=== PATIENT | male | born 1975 | race African-American/Black ===

== ENCOUNTER 2017-03-06 22:50 | Emergency (ER) | payer MEDICARE, OTHER ==
[~2017-03-06] VITALS: Ht 188 cm; Wt 86.4 kg
[~2017-03-06 22:50] MED LIST: DALF10TA PO; DIME240C2 PO; ERGO500050 PO
[2017-03-06] MEDS ORDERED: AMLO-511 PO (22:55)
[2017-03-06] MEDS ORDERED: DOCU250C91 PO (22:55)
[2017-03-07 00:53] LABS: APPEARANCE,URINE CLEAR (CLEAR); GLUCOSE, URINE (UA) NEGATIVE (NEGATIVE); KETONES,URINE NEGATIVE (NEGATIVE); LEUKOCYTE ESTERASE ,URINE NEGATIVE (NEGATIVE); OCCULT BLOOD,URINE MODERATE (NEGATIVE); PROTEIN,URINE NEGATIVE (NEGATIVE)
[2017-03-07 00:54] LABS: ADD UA MICROSCOPIC YES
[2017-03-07 01:06] LABS: WBC,URINE None Seen /HPF (0-5)
[2017-03-07 01:23] LABS: BASOPHILS # (AUTO) 0.04 K/uL (0.00-0.20); BASOPHILS % (AUTO) 0.4 % (0.0-2.0); EOSINOPHILS # (AUTO) 0.12 K/uL (0.00-0.70); EOSINOPHILS % (AUTO) 1.12 % (1.0-6.0); HEMATOCRIT 47.6 % (41-53); HEMOGLOBIN 15.4 g/dL (13.5-17.5); LYMPHOCYTES # (AUTO) 1.4 K/uL (1.0-4.8); MEAN CORPUSCULAR HGB CONC 32.5 G/dL (31.0-37.0); MEAN CORPUSCULAR VOLUME 89 fL (80-100); MONOCYTES # (AUTO) 0.9 K/uL (0.1-1.0); MONOCYTES % (AUTO) 9.1 % (2.0-9.0); NEUTROPHILS # (AUTO) 7.9 K/uL (1.8-7.7); NEUTROPHILS % (AUTO) 76.4 % (40.0-70.0); PLATELET COUNT (AUTO) 203 K/uL (150-450); RED BLOOD CELL COUNT(AUTO) 5.33 MIL/uL (4.50-5.90); RED CELL DISTRIBUTION WIDTH 14.3 % (11.5-14.5); WHITE BLOOD COUNT (AUTO) 10.3 K/uL (4.5-11.0)
[2017-03-07 01:35] LABS: ANION GAP 8 mmol/L (8-16); CALCIUM, TOTAL 9.6 mg/dL (8.8-10.5); CARBON DIOXIDE 28 mmol/L (22-29); CHLORIDE 104 mmol/L (98-107); CREATININE 0.69 mg/dL (0.60-1.30); GLOMERULAR FILTR. RATE CALC > 60 mL/min (>60); SODIUM SERUM 140 mmol/L (136-145); UREA NITROGEN, BLOOD 12 mg/dL (7-18)
[2017-03-07 01:41] LABS: ALANINE AMINOTRANSFERASE 37 U/L (12-78); ALBUMIN 3.5 g/dL (3.4-5.0); ASPARTATE AMINOTRANSFERASE 19 U/L (15-37); BILIRUBIN,TOTAL 0.4 mg/dL (0.1-1.0)
[2017-03-07 01:47] VITALS: BP 140/89
== END 2017-03-07 03:00 | disposition home or self-care (01) ==
LOC: EMS 22:52
DX: K59.00 Constipation, unspecified (principal); R33.9 Retention of urine, unspecified; I10 Essential (primary) hypertension; F12.90 Cannabis use, unspecified, uncomplicated
CPT/HCPCS: 51702; 74022; 99285

== ENCOUNTER 2019-06-17 17:49 | Inpatient (IN) | payer OTHER ==
[~2019-06-17] VITALS: Ht 188 cm; Wt 79.9 kg
[~2019-06-17 17:49] MED LIST changes: +AMLO5TAB9 PO; -DALF10TA PO; -DIME240C2 PO; +DOCU-342 PO; -ERGO500050 PO
[2019-06-17] MEDS ORDERED: SODIUM CHLORIDE 0.9% 1,000 ML IV ONE ×2 (17:57→19:30)
[2019-06-17] MEDS ORDERED: CHOL125C2 PO (17:57)
[2019-06-17] MEDS ORDERED: CYAN50008 PO (17:57)
[2019-06-17 18:30] LABS: BASOPHILS % (AUTO) 0.1 % (0.0-2.0); EOSINOPHILS % (AUTO) 0.1 % (1.0-6.0); HEMATOCRIT 47.1 % (41-53); HEMOGLOBIN 15.2 g/dL (13.5-17.5); LYMPHOCYTES # (AUTO) 0.9 K/uL (1.0-4.8); LYMPHOCYTES % (AUTO) 5.5 % (22.0-44.0); MEAN CORPUSCULAR HEMOGLOBIN 28.4 pg (26.0-34.0); MEAN CORPUSCULAR HGB CONC 32.3 G/dL (31.0-37.0); MEAN CORPUSCULAR VOLUME 88 fL (80-100); MONOCYTES % (AUTO) 5.5 % (2.0-9.0); NEUTROPHILS # (AUTO) 15.3 K/uL (1.8-7.7); PLATELET COUNT (AUTO) 213 K/uL (150-450); RED BLOOD CELL COUNT(AUTO) 5.34 MIL/uL (4.50-5.90); RED CELL DISTRIBUTION WIDTH 13.6 % (11.5-14.5)
[2019-06-17 18:47] LABS: APPEARANCE,URINE TURBID (CLEAR); GLUCOSE, URINE (UA) NEGATIVE (NEGATIVE); KETONES,URINE 15 mg/dL (NEGATIVE); LEUKOCYTE ESTERASE ,URINE LARGE (NEGATIVE); NITRATE,URINE NEGATIVE (NEGATIVE); OCCULT BLOOD,URINE NEGATIVE (NEGATIVE); PROTEIN,URINE NEGATIVE (NEGATIVE)
[2019-06-17 18:48] LABS: BILIRUBIN,URINE PRELIM. POSITIVE (NEGATIVE)
[2019-06-17 18:48] LABS: NEUTROPHILS % (AUTO) 88.8 % (40.0-70.0)
[2019-06-17 18:57] LABS: ANION GAP 11 mmol/L (8-16); CALCIUM, TOTAL 9.2 mg/dL (8.8-10.5); CARBON DIOXIDE 25 mmol/L (22-29); CHLORIDE 104 mmol/L (98-107); CREATININE 0.58 mg/dL (0.60-1.30); GLOMERULAR FILTR. RATE CALC > 60 mL/min (>60); GLUCOSE,RANDOM 104 mg/dL (70-110); POTASSIUM 3.6 mmol/L (3.5-5.1); SODIUM SERUM 140 mmol/L (136-145); UREA NITROGEN, BLOOD 10 mg/dL (7-18)
[2019-06-17] MEDS ORDERED: CefTRIAXone 1 GM/DEXTROSE 50 ML IV ONE (19:00)
[2019-06-17] MEDS ORDERED: AZITHROMYCIN 500 MG/NS 250 ML IV ONE (19:00)
[2019-06-17 19:01] LABS: ALANINE AMINOTRANSFERASE 30 U/L (12-78); ALBUMIN 3.2 g/dL (3.4-5.0); ALKALINE PHOSPHATASE 73 U/L (46-116); ASPARTATE AMINOTRANSFERASE 13 U/L (15-37); BILIRUBIN,TOTAL 0.5 mg/dL (0.1-1.0); CREATINE KINASE, TOTAL ONLY 59 U/L (39-308); TOTAL PROTEIN, SERUM 6.7 g/dL (6.4-8.2)
[2019-06-17 19:03] LABS: RBC,URINE None Seen /HPF (0-2)
[2019-06-17 19:04] LABS: AMORPHOUS SEDIMENT,UR Moderate /LPF (None Seen); BACTERIA,URINE Moderate /HPF (None Seen); CALCIUM OXALATE CRYSTALS,UR Moderate /LPF (None Seen); SQUAMOUS EPITHELIAL CELL,UR Few /LPF (None Seen)
[2019-06-17 19:07] LABS: INR 1.1 (0.9-1.1); PROTHROMBIN TIME 11.4 SEC (9.4-11.6)
[2019-06-17 19:26] LABS: INFLUENZA TYPE A NEGATIVE FOR TYPE A (NEGATIVE); INFLUENZA TYPE B NEGATIVE FOR TYPE B (NEGATIVE)
[2019-06-17] MEDS ORDERED: ACETAMINOPHEN 325 MG TABLET PO PRN (19:30)
[2019-06-17] MEDS ORDERED: BISACODYL 10 MG RECTAL RECTAL SUPPOSITORY PR PRN (19:30)
[2019-06-17] MEDS: DOCUSATE SODIUM 100 MG CAPSULE PO SCH (20:49)
[2019-06-17 22:19] VITALS: BP 135/84
[2019-06-18 03:25] VITALS: BP 131/89
[2019-06-18 07:34] VITALS: BP 128/77
[2019-06-18] MEDS: DOCUSATE SODIUM 100 MG CAPSULE PO SCH ×2 (10:28→20:28)
[2019-06-18] MEDS: HEPARIN SODIUM,PORCINE 5,000 UNITS/ML VIAL SQ SCH ×4 (10:29→23:39)
[2019-06-18 11:19] VITALS: BP 118/77
[2019-06-18 15:35] VITALS: BP 130/74
[2019-06-18] MEDS: CefTRIAXone 1 GM/DEXTROSE 50 ML IV SCH (19:32)
[2019-06-18 19:57] VITALS: BP 143/83
[2019-06-18] MEDS: AZITHROMYCIN 500 MG/NS 250 ML IV SCH (20:25)
[2019-06-18 23:49] VITALS: BP 137/78
[2019-06-19 00:09] VITALS: BP 129/76
[2019-06-19 04:30] VITALS: BP 147/96
[2019-06-19 07:54] LABS: BASOPHILS % (AUTO) 0.1 % (0.0-2.0); EOSINOPHILS % (AUTO) 2.6 % (1.0-6.0); HEMATOCRIT 40.7 % (41-53); LYMPHOCYTES # (AUTO) 1.3 K/uL (1.0-4.8); LYMPHOCYTES % (AUTO) 10.9 % (22.0-44.0); MEAN CORPUSCULAR HEMOGLOBIN 28.3 pg (26.0-34.0); MEAN CORPUSCULAR VOLUME 88 fL (80-100); MONOCYTES # (AUTO) 0.7 K/uL (0.1-1.0); MONOCYTES % (AUTO) 6.1 % (2.0-9.0); NEUTROPHILS # (AUTO) 9.6 K/uL (1.8-7.7); NEUTROPHILS % (AUTO) 80.3 % (40.0-70.0); PLATELET COUNT (AUTO) 207 K/uL (150-450); RED BLOOD CELL COUNT(AUTO) 4.61 MIL/uL (4.50-5.90); RED CELL DISTRIBUTION WIDTH 13.7 % (11.5-14.5)
[2019-06-19 08:01] LABS: ANION GAP 9 mmol/L (8-16); CALCIUM, TOTAL 8.6 mg/dL (8.8-10.5); CARBON DIOXIDE 27 mmol/L (22-29); CHLORIDE 109 mmol/L (98-107); CREATININE 0.52 mg/dL (0.60-1.30); GLOMERULAR FILTR. RATE CALC > 60 mL/min (>60); GLUCOSE,RANDOM 77 mg/dL (70-110); POTASSIUM 3.8 mmol/L (3.5-5.1); SODIUM SERUM 145 mmol/L (136-145); UREA NITROGEN, BLOOD 9 mg/dL (7-18)
[2019-06-19] MEDS: DOCUSATE SODIUM 100 MG CAPSULE PO SCH ×2 (08:14→20:40)
[2019-06-19] MEDS: HEPARIN SODIUM,PORCINE 5,000 UNITS/ML VIAL SQ SCH ×2 (08:14→15:32)
[2019-06-19 08:45] VITALS: BP 144/95
[2019-06-19 11:32] VITALS: BP 135/81
[2019-06-19 15:39] VITALS: BP 139/94
[2019-06-19] MEDS: CefTRIAXone 1 GM/DEXTROSE 50 ML IV SCH (18:43)
[2019-06-19 20:01] VITALS: BP 144/83
[2019-06-20] VITALS (8 sets, daily range): BP systolic 145–162; BP diastolic 76–98
[2019-06-20] MEDS: AZITHROMYCIN 500 MG/NS 250 ML IV SCH ×2 (00:38→20:17)
[2019-06-20] MEDS: HEPARIN SODIUM,PORCINE 5,000 UNITS/ML VIAL SQ SCH ×3 (00:38→17:32)
[2019-06-20] MEDS: DOCUSATE SODIUM 100 MG CAPSULE PO SCH ×2 (08:43→20:18)
[2019-06-20] MEDS: CefTRIAXone 1 GM/DEXTROSE 50 ML IV SCH (17:31)
[2019-06-21 04:40] VITALS: BP 153/92
[2019-06-21] MEDS: DOCUSATE SODIUM 100 MG CAPSULE PO SCH ×2 (07:58→20:04)
[2019-06-21] MEDS: HEPARIN SODIUM,PORCINE 5,000 UNITS/ML VIAL SQ SCH ×4 (08:00→23:51)
[2019-06-21 08:28] VITALS: BP 157/99
[2019-06-21 08:42] LABS: BASOPHILS % (AUTO) 0.6 % (0.0-2.0); EOSINOPHILS % (AUTO) 5.8 % (1.0-6.0); HEMATOCRIT 39.9 % (41-53); HEMOGLOBIN 13.2 g/dL (13.5-17.5); LYMPHOCYTES # (AUTO) 1.6 K/uL (1.0-4.8); LYMPHOCYTES % (AUTO) 22.9 % (22.0-44.0); MEAN CORPUSCULAR VOLUME 88 fL (80-100); MONOCYTES # (AUTO) 0.5 K/uL (0.1-1.0); NEUTROPHILS # (AUTO) 4.3 K/uL (1.8-7.7); NEUTROPHILS % (AUTO) 62.7 % (40.0-70.0); PLATELET COUNT (AUTO) 220 K/uL (150-450); RED BLOOD CELL COUNT(AUTO) 4.54 MIL/uL (4.50-5.90); RED CELL DISTRIBUTION WIDTH 13.6 % (11.5-14.5)
[2019-06-21 11:05] VITALS: BP 147/97
[2019-06-21 16:10] VITALS: BP 141/93
[2019-06-21] MEDS: CefTRIAXone 1 GM/DEXTROSE 50 ML IV SCH (17:37)
[2019-06-21 19:40] VITALS: BP 153/97
[2019-06-21] MEDS: AZITHROMYCIN 500 MG/NS 250 ML IV SCH (20:04)
[2019-06-22] MEDS: HEPARIN SODIUM,PORCINE 5,000 UNITS/ML VIAL SQ SCH (08:00)
[2019-06-22] MEDS: DOCUSATE SODIUM 100 MG CAPSULE PO SCH (08:10)
[2019-06-22 08:20] VITALS: BP 158/97
[2019-06-22] MEDS ORDERED: LEVO-72 PO (09:46)
[2019-06-22 11:43] VITALS: BP 131/92
[2019-06-22 15:44] VITALS: BP 128/91
== END 2019-06-22 15:50 | disposition home or self-care (01) | DRG 871 ==
LOC: EMS 17:50 → 5N 21:36 → 4E 06-18 23:49
PROVIDERS: ADMIT Internal Medicine; ATTEND Internal Medicine
DX: A41.9 Sepsis, unspecified organism (principal); J69.0 Pneumonitis due to inhalation of food and vomit; N39.0 Urinary tract infection, site not specified; E44.0 Moderate protein-calorie malnutrition; G35 Multiple sclerosis; I10 Essential (primary) hypertension; F12.90 Cannabis use, unspecified, uncomplicated; B96.20 Unspecified Escherichia coli [E. coli] as the cause of diseases classified elsewhere; R62.50 Unspecified lack of expected normal physiological development in childhood; Z68.22 Body mass index [BMI] 22.0-22.9, adult
CPT/HCPCS: 51702; 83605; 87040; 87086; 87205; 87804; 92610; 93005; G0378; J0456; J0696; J1644; J7030

== ENCOUNTER 2021-05-06 20:27 | Inpatient (IN) | payer OTHER ==
[~2021-05-06] VITALS: Ht 172.7 cm; Wt 77.5 kg
[~2021-05-06 20:27] MED LIST changes: +AMLO-257 PO; -AMLO5TAB9 PO; +CHOL500013 PO; +CYAN50009 PO; -DOCU-342 PO; +LEVO-72 PO
[2021-05-06] MEDS ORDERED: SODIUM CHLORIDE 0.9% 1,000 ML IV ONE (23:30)
[2021-05-06] MEDS ORDERED: ACETAMINOPHEN 1000 MG/ISO-OSM 100 ML IV ONE (23:30)
[2021-05-06 23:56] LABS: BASOPHILS % (AUTO) 0.1 % (0.0-2.0); EOSINOPHILS % (AUTO) 0.6 % (1.0-6.0); HEMATOCRIT 49.3 % (41-53); HEMOGLOBIN 16.1 g/dL (13.5-17.5); LYMPHOCYTES % (AUTO) 5.1 % (22.0-44.0); MEAN CORPUSCULAR HEMOGLOBIN 27.9 pg (26.0-34.0); MEAN CORPUSCULAR HGB CONC 32.6 G/dL (31.0-37.0); MEAN CORPUSCULAR VOLUME 86 fL (80-100); MONOCYTES # (AUTO) 0.8 K/uL (0.1-1.0); MONOCYTES % (AUTO) 4.3 % (2.0-9.0); NEUTROPHILS # (AUTO) 17.2 K/uL (1.8-7.7); PLATELET COUNT (AUTO) 236 K/uL (150-450); RED BLOOD CELL COUNT(AUTO) 5.76 MIL/uL (4.50-5.90); RED CELL DISTRIBUTION WIDTH 14.1 % (11.5-14.5)
[2021-05-06 23:59] LABS: NEUTROPHILS % (AUTO) 89.9 % (40.0-70.0)
[2021-05-07] VITALS (7 sets, daily range): BP systolic 148–173; BP diastolic 97–107
[2021-05-07 00:06] LABS: ANION GAP 9 mmol/L (8-16); CALCIUM, TOTAL 9.7 mg/dL (8.8-10.5); CARBON DIOXIDE 27 mmol/L (22-29); CHLORIDE 104 mmol/L (98-107); CREATININE 0.51 mg/dL (0.60-1.30); GLUCOSE,RANDOM 149 mg/dL (70-110); POTASSIUM 3.8 mmol/L (3.5-5.1); SODIUM SERUM 140 mmol/L (136-145); UREA NITROGEN, BLOOD 9 mg/dL (7-18)
[2021-05-07 00:07] LABS: GLOMERULAR FILTR. RATE CALC > 60 mL/min (>60)
[2021-05-07 00:11] LABS: INR 1.3 (0.9-1.1); PROTHROMBIN TIME 13.4 SEC (9.4-11.6)
[2021-05-07 00:13] LABS: ALANINE AMINOTRANSFERASE 25 U/L (12-78); ALBUMIN 3.3 g/dL (3.4-5.0); ALKALINE PHOSPHATASE 68 U/L (46-116); ASPARTATE AMINOTRANSFERASE 9 U/L (15-37); BILIRUBIN,TOTAL 0.8 mg/dL (0.1-1.0); CREATINE KINASE, TOTAL ONLY 32 U/L (39-308)
[2021-05-07 00:15] LABS: LACTIC ACID 0.7 mmol/L (0.4-2.0)
[2021-05-07 00:23] LABS: COVID AG,FIA SOURCE NASAL SWAB
[2021-05-07] MEDS ORDERED: PIPERACILLIN/TAZO 3.375 GM/D5W 50 ML IV ONE (00:45)
[2021-05-07] MEDS ORDERED: LOSA100T58 PO (00:53)
[2021-05-07] MEDS ORDERED: LEVOFLOXACIN 500 MG/D5% WATER 100 ML IV ONE (01:00)
[2021-05-07] MEDS ORDERED: ONDANSETRON HCL 4 MG/2 ML VIAL IVP PRN ×2 (01:15→02:30)
[2021-05-07] MEDS ORDERED: ACETAMINOPHEN 325 MG TABLET PO PRN (01:15)
[2021-05-07 01:47] LABS: APPEARANCE,URINE CLEAR (CLEAR); BILIRUBIN,URINE NEGATIVE (NEGATIVE); GLUCOSE, URINE (UA) NEGATIVE (NEGATIVE); KETONES,URINE >=80 mg/dL (NEGATIVE); LEUKOCYTE ESTERASE ,URINE NEGATIVE (NEGATIVE); NITRATE,URINE NEGATIVE (NEGATIVE); OCCULT BLOOD,URINE SMALL (NEGATIVE); PH,URINE 6.5 (5.0-8.0); PROTEIN,URINE NEGATIVE (NEGATIVE)
[2021-05-07 01:48] LABS: BACTERIA,URINE Rare /HPF (None Seen); WBC,URINE 0-2 /HPF (0-5)
[2021-05-07] MEDS ORDERED: RINGERS LACTATED IV ONE (02:30)
[2021-05-07] MEDS: RINGERS SOLUTION,LACTATED 1,000 ML IV SCH ×2 (03:58→14:41)
[2021-05-07] MEDS ORDERED: SODIUM CHLORIDE 0.9% 100 ML ONE (07:20)
[2021-05-07] MEDS ORDERED: IOHEXOL 350 MG/ML 100 ML VIAL ONE (07:20)
[2021-05-07] MEDS ORDERED: SODIUM CHLORIDE 0.9% 0 ML IV ONE (08:44)
[2021-05-07] MEDS: PIPERACILLIN/TAZO 3.375 GM/D5W 50 ML IV SCH ×3 (08:50→20:15)
[2021-05-07] MEDS: HEPARIN SODIUM,PORCINE 5,000 UNITS/ML VIAL SQ SCH ×2 (08:50→16:52)
[2021-05-07] MEDS ORDERED: LABETALOL HCL 5 MG/ML 20 ML VIAL IVP ONE (09:15)
[2021-05-07 14:35] LABS: BASOPHILS % (AUTO) 0.1 % (0.0-2.0); EOSINOPHILS % (AUTO) 0.2 % (1.0-6.0); HEMATOCRIT 44.2 % (41-53); HEMOGLOBIN 14.8 g/dL (13.5-17.5); LYMPHOCYTES # (AUTO) 1.2 K/uL (1.0-4.8); LYMPHOCYTES % (AUTO) 7.7 % (22.0-44.0); MEAN CORPUSCULAR HEMOGLOBIN 28.4 pg (26.0-34.0); MEAN CORPUSCULAR HGB CONC 33.4 G/dL (31.0-37.0); MEAN CORPUSCULAR VOLUME 85 fL (80-100); MONOCYTES # (AUTO) 0.8 K/uL (0.1-1.0); PLATELET COUNT (AUTO) 212 K/uL (150-450); RED BLOOD CELL COUNT(AUTO) 5.19 MIL/uL (4.50-5.90)
[2021-05-07 14:44] LABS: ANION GAP 7 mmol/L (8-16); CALCIUM, TOTAL 8.9 mg/dL (8.8-10.5); CARBON DIOXIDE 28 mmol/L (22-29); CHLORIDE 105 mmol/L (98-107); CREATININE 0.44 mg/dL (0.60-1.30); GLUCOSE,RANDOM 111 mg/dL (70-110); POTASSIUM 3.6 mmol/L (3.5-5.1); SODIUM SERUM 140 mmol/L (136-145); UREA NITROGEN, BLOOD 9 mg/dL (7-18)
[2021-05-07 14:46] LABS: GLOMERULAR FILTR. RATE CALC > 60 mL/min (>60)
[2021-05-07] MEDS: LABETALOL HCL 5 MG/ML 20 ML VIAL IVP PRN (20:16)
[2021-05-08] MEDS: HEPARIN SODIUM,PORCINE 5,000 UNITS/ML VIAL SQ SCH ×3 (00:23→17:30)
[2021-05-08] MEDS: PIPERACILLIN/TAZO 3.375 GM/D5W 50 ML IV SCH ×4 (02:17→19:56)
[2021-05-08] MEDS: RINGERS SOLUTION,LACTATED 1,000 ML IV SCH ×3 (02:18→23:08)
[2021-05-08 03:38] VITALS: BP 177/101
[2021-05-08 07:33] LABS: BASOPHILS % (AUTO) 0.2 % (0.0-2.0); EOSINOPHILS % (AUTO) 2.3 % (1.0-6.0); HEMATOCRIT 44.2 % (41-53); LYMPHOCYTES # (AUTO) 1.3 K/uL (1.0-4.8); LYMPHOCYTES % (AUTO) 12.2 % (22.0-44.0); MEAN CORPUSCULAR HEMOGLOBIN 29.1 pg (26.0-34.0); MEAN CORPUSCULAR VOLUME 86 fL (80-100); MONOCYTES # (AUTO) 0.8 K/uL (0.1-1.0); MONOCYTES % (AUTO) 7.9 % (2.0-9.0); NEUTROPHILS # (AUTO) 8.2 K/uL (1.8-7.7); NEUTROPHILS % (AUTO) 77.4 % (40.0-70.0); PLATELET COUNT (AUTO) 179 K/uL (150-450); RED BLOOD CELL COUNT(AUTO) 5.16 MIL/uL (4.50-5.90); RED CELL DISTRIBUTION WIDTH 13.5 % (11.5-14.5)
[2021-05-08 07:44] LABS: ANION GAP 7 mmol/L (8-16); CALCIUM, TOTAL 9.2 mg/dL (8.8-10.5); CARBON DIOXIDE 28 mmol/L (22-29); CHLORIDE 104 mmol/L (98-107); CREATININE 0.54 mg/dL (0.60-1.30); GLUCOSE,RANDOM 103 mg/dL (70-110); POTASSIUM 3.6 mmol/L (3.5-5.1); SODIUM SERUM 139 mmol/L (136-145); UREA NITROGEN, BLOOD 7 mg/dL (7-18)
[2021-05-08 07:45] LABS: GLOMERULAR FILTR. RATE CALC > 60 mL/min (>60)
[2021-05-08 07:49] VITALS: BP 182/108
[2021-05-08] MEDS: LOSARTAN POTASSIUM 50 MG TABLET PO SCH (08:17)
[2021-05-08] MEDS: CHOLECALCIFEROL (VIT D3) 5,000 [125 MCG] UNITS CAPSULE PO SCH (08:20)
[2021-05-08] MEDS: LABETALOL HCL 5 MG/ML 20 ML VIAL IVP PRN (08:24)
[2021-05-08] MEDS ORDERED: CYANOCOBALAMIN 500 MCG TABLET PO SCH (09:00)
[2021-05-08 11:00] VITALS: BP 155/92
[2021-05-08 15:23] VITALS: BP 152/88
[2021-05-08 19:47] VITALS: BP 146/90
[2021-05-08 23:42] VITALS: BP 153/96
[2021-05-09] MEDS: HEPARIN SODIUM,PORCINE 5,000 UNITS/ML VIAL SQ SCH ×3 (01:03→16:41)
[2021-05-09] MEDS: PIPERACILLIN/TAZO 3.375 GM/D5W 50 ML IV SCH ×4 (01:04→20:33)
[2021-05-09] MEDS ORDERED: INFLUENZA VIRUS VACCINE QVS 2021-22 (6MO+)/PF 60 MCG/0.5 ML SYRINGE IM. ONE (02:30)
[2021-05-09] MEDS ORDERED: PNEUMOCOCCAL VACCINE POLYVALENT 0.5 ML VIAL [PPSV23] IM. ONE (02:30)
[2021-05-09 04:13] VITALS: BP 158/98
[2021-05-09 07:27] VITALS: BP 170/102
[2021-05-09] MEDS: LOSARTAN POTASSIUM 50 MG TABLET PO SCH (08:20)
[2021-05-09] MEDS ORDERED: LABETALOL HCL 5 MG/ML IV PRN (08:22)
[2021-05-09] MEDS ORDERED: CYANOCOBALAMIN 500 MCG TABLET PO SCH (09:00)
[2021-05-09] MEDS: RINGERS SOLUTION,LACTATED 1,000 ML IV SCH ×2 (09:34→22:35)
[2021-05-09] MEDS: CHOLECALCIFEROL (VIT D3) 5,000 [125 MCG] UNITS CAPSULE PO SCH (09:35)
[2021-05-09] MEDS: LABETALOL HCL 5 MG/ML 20 ML VIAL IVP PRN (09:49)
[2021-05-09 10:39] VITALS: BP 164/97
[2021-05-09] MEDS: NIFEdipine 30 MG ER TABLET PO SCH ×2 (14:04→20:34)
[2021-05-09 14:53] VITALS: BP 155/102
[2021-05-09 19:42] VITALS: BP 153/95
[2021-05-09 23:44] VITALS: BP 179/84
[2021-05-10] VITALS (7 sets, daily range): BP systolic 136–168; BP diastolic 74–105
[2021-05-10] MEDS: HEPARIN SODIUM,PORCINE 5,000 UNITS/ML VIAL SQ SCH ×4 (00:11→16:00)
[2021-05-10] MEDS: PIPERACILLIN/TAZO 3.375 GM/D5W 50 ML IV SCH ×4 (01:16→22:30)
[2021-05-10] MEDS: LABETALOL HCL 5 MG/ML 20 ML VIAL IVP PRN (03:12)
[2021-05-10] MEDS: RINGERS SOLUTION,LACTATED 1,000 ML IV SCH ×2 (09:08→22:31)
[2021-05-10] MEDS: CHOLECALCIFEROL (VIT D3) 5,000 [125 MCG] UNITS CAPSULE PO SCH (09:09)
[2021-05-10] MEDS: LOSARTAN POTASSIUM 50 MG TABLET PO SCH (09:09)
[2021-05-10] MEDS: NIFEdipine 30 MG ER TABLET PO SCH ×2 (09:10→22:30)
[2021-05-10 13:44] LABS: BASOPHILS % (AUTO) 0.6 % (0.0-2.0); EOSINOPHILS % (AUTO) 8.6 % (1.0-6.0); HEMATOCRIT 42.6 % (41-53); HEMOGLOBIN 14.2 g/dL (13.5-17.5); LYMPHOCYTES # (AUTO) 1.6 K/uL (1.0-4.8); LYMPHOCYTES % (AUTO) 19.6 % (22.0-44.0); MEAN CORPUSCULAR HEMOGLOBIN 28.6 pg (26.0-34.0); MEAN CORPUSCULAR HGB CONC 33.4 G/dL (31.0-37.0); MEAN CORPUSCULAR VOLUME 86 fL (80-100); MONOCYTES # (AUTO) 0.6 K/uL (0.1-1.0); MONOCYTES % (AUTO) 6.9 % (2.0-9.0); NEUTROPHILS # (AUTO) 5.1 K/uL (1.8-7.7); NEUTROPHILS % (AUTO) 64.3 % (40.0-70.0); PLATELET COUNT (AUTO) 269 K/uL (150-450); RED BLOOD CELL COUNT(AUTO) 4.97 MIL/uL (4.50-5.90); RED CELL DISTRIBUTION WIDTH 13.8 % (11.5-14.5)
[2021-05-10 14:22] LABS: ANION GAP 6 mmol/L (8-16); CALCIUM, TOTAL 9.4 mg/dL (8.8-10.5); CARBON DIOXIDE 31 mmol/L (22-29); CHLORIDE 104 mmol/L (98-107); CREATININE 0.41 mg/dL (0.60-1.30); GLOMERULAR FILTR. RATE CALC > 60 mL/min (>60); GLUCOSE,RANDOM 142 mg/dL (70-110); POTASSIUM 3.3 mmol/L (3.5-5.1); SODIUM SERUM 141 mmol/L (136-145); UREA NITROGEN, BLOOD 2 mg/dL (7-18)
[2021-05-10 14:27] LABS: ALANINE AMINOTRANSFERASE 18 U/L (12-78); ALBUMIN 2.6 g/dL (3.4-5.0); ALKALINE PHOSPHATASE 55 U/L (46-116); ASPARTATE AMINOTRANSFERASE 15 U/L (15-37); BILIRUBIN,TOTAL 0.3 mg/dL (0.1-1.0); TOTAL PROTEIN, SERUM 6.7 g/dL (6.4-8.2)
[2021-05-11] VITALS (9 sets, daily range): BP systolic 137–165; BP diastolic 79–116
[2021-05-11] MEDS: RINGERS SOLUTION,LACTATED 1,000 ML IV SCH ×3 (00:30→21:01)
[2021-05-11] MEDS: PIPERACILLIN/TAZO 3.375 GM/D5W 50 ML IV SCH ×4 (02:00→21:00)
[2021-05-11] MEDS: HEPARIN SODIUM,PORCINE 5,000 UNITS/ML VIAL SQ SCH ×3 (08:00→16:33)
[2021-05-11] MEDS: LOSARTAN POTASSIUM 50 MG TABLET PO SCH (08:19)
[2021-05-11] MEDS: NIFEdipine 30 MG ER TABLET PO SCH ×2 (08:19→21:16)
[2021-05-11] MEDS: LABETALOL HCL 5 MG/ML 20 ML VIAL IVP PRN ×2 (08:45→16:42)
[2021-05-11] MEDS: CHOLECALCIFEROL (VIT D3) 5,000 [125 MCG] UNITS CAPSULE PO SCH (09:00)
[2021-05-11 12:18] LABS: ABG METHEMOGLOBIN 0.3 % (0.0-1.5); SOURCE, BLOOD GAS ARTERIAL; TEMPERATURE, FAHRENHEIT, BG 97.6 FAHREN (96.0-98.6)
[2021-05-11 12:23] LABS: ABG BASE EXCESS 0.8 mmol/L (-2.0-3.0); ABG CARBOXYHEMOGLOBIN 0.5 % (0.0-1.5); ABG HCO3 24.6 mmol/L (22.0-26.0); ABG OXYHEMOGLOBIN 78.4 % (94.0-100.0); ABG PCO2 40 mmHg (35-45); ABG PH 7.419 (7.35-7.450); ABG TOTAL HEMOGLOBIN 16.4 G/dL (12.0-18.0)
[2021-05-11 12:26] LABS: PO2, ARTERIAL BG 35.4 mmHg (88.0-96.0)
[2021-05-11 12:27] LABS: INSPIRATORY TIME, BG 0.8 SEC; O2 DEVICE,BLOOD GAS BIPAP (ROOM AIR); SITE, BLOOD GAS RT RADIAL; SPONTANEOUS VT, BG 568 ml
[2021-05-11 16:47] LABS: GLUCOMETER DEV NAME(LOC) 5N.1C; GLUCOSE,POINT OF CARE 124 MG/DL (70-110)
[2021-05-11] MEDS: ACETYLCYSTEINE 10% 100 MG/ML 4 ML NEB SOLUTION NEB SCH ×4 (17:11→23:05)
[2021-05-11] MEDS: IPRATROPIUM BROMIDE 0.5 MG/2.5 ML NEB SOLUTION NEB SCH ×4 (17:11→23:04)
[2021-05-11] MEDS: ALBUTEROL SULFATE 2.5 MG/0.5 ML NEB SOLUTION NEB SCH ×4 (17:11→23:04)
[2021-05-12] VITALS (17 sets, daily range): BP systolic 125–168; BP diastolic 79–106
[2021-05-12] MEDS: HEPARIN SODIUM,PORCINE 5,000 UNITS/ML VIAL SQ SCH ×3 (01:00→15:55)
[2021-05-12] MEDS: PIPERACILLIN/TAZO 3.375 GM/D5W 50 ML IV SCH ×4 (02:08→20:21)
[2021-05-12] MEDS: ACETYLCYSTEINE 10% 100 MG/ML 4 ML NEB SOLUTION NEB SCH ×6 (03:37→23:55)
[2021-05-12] MEDS: IPRATROPIUM BROMIDE 0.5 MG/2.5 ML NEB SOLUTION NEB SCH ×6 (03:37→23:55)
[2021-05-12] MEDS: ALBUTEROL SULFATE 2.5 MG/0.5 ML NEB SOLUTION NEB SCH ×6 (03:37→23:55)
[2021-05-12] MEDS: LABETALOL HCL 5 MG/ML 20 ML VIAL IVP PRN (04:02)
[2021-05-12] MEDS: RINGERS SOLUTION,LACTATED 1,000 ML IV SCH ×2 (06:40→18:05)
[2021-05-12 08:32] LABS: BASOPHILS % (AUTO) 0.2 % (0.0-2.0); EOSINOPHILS % (AUTO) 0.4 % (1.0-6.0); HEMATOCRIT 41.8 % (41-53); HEMOGLOBIN 14.1 g/dL (13.5-17.5); LYMPHOCYTES # (AUTO) 1.2 K/uL (1.0-4.8); LYMPHOCYTES % (AUTO) 6.4 % (22.0-44.0); MEAN CORPUSCULAR HGB CONC 33.7 G/dL (31.0-37.0); MEAN CORPUSCULAR VOLUME 86 fL (80-100); MONOCYTES # (AUTO) 1.3 K/uL (0.1-1.0); MONOCYTES % (AUTO) 7.1 % (2.0-9.0); NEUTROPHILS # (AUTO) 15.5 K/uL (1.8-7.7); PLATELET COUNT (AUTO) 258 K/uL (150-450); RED BLOOD CELL COUNT(AUTO) 4.86 MIL/uL (4.50-5.90); RED CELL DISTRIBUTION WIDTH 13.8 % (11.5-14.5)
[2021-05-12 08:39] LABS: NEUTROPHILS % (AUTO) 85.9 % (40.0-70.0)
[2021-05-12 10:01] LABS: ANION GAP 8 mmol/L (8-16); CALCIUM, TOTAL 8.9 mg/dL (8.8-10.5); CARBON DIOXIDE 29 mmol/L (22-29); CHLORIDE 103 mmol/L (98-107); CREATININE 0.53 mg/dL (0.60-1.30); GLUCOSE,RANDOM 116 mg/dL (70-110); SODIUM SERUM 140 mmol/L (136-145); UREA NITROGEN, BLOOD 6 mg/dL (7-18)
[2021-05-12 10:02] LABS: GLOMERULAR FILTR. RATE CALC > 60 mL/min (>60)
[2021-05-12] MEDS: POTASSIUM CHL 10 MEQ/WATER 50 ML IV SCH ×4 (10:49→14:22)
[2021-05-12] MEDS: LOSARTAN POTASSIUM 50 MG TABLET PO SCH (11:22)
[2021-05-12] MEDS: NIFEdipine 30 MG ER TABLET PO SCH ×2 (11:22→20:20)
[2021-05-12] MEDS: CHOLECALCIFEROL (VIT D3) 5,000 [125 MCG] UNITS CAPSULE PO SCH (11:23)
[2021-05-12] MEDS ORDERED: 0.9% SODIUM CHLORIDE 5 ML NEB SOLUTION NEB ONE (19:57)
[2021-05-12 21:27] LABS: C-REACTIVE PROTEIN QUANT 16.85 mg/dL (0.00-0.30)
[2021-05-12 21:34] LABS: LACTIC ACID 1.2 mmol/L (0.4-2.0)
[2021-05-13] VITALS (14 sets, daily range): BP systolic 121–158; BP diastolic 72–99
[2021-05-13] MEDS: HEPARIN SODIUM,PORCINE 5,000 UNITS/ML VIAL SQ SCH ×3 (00:58→16:14)
[2021-05-13] MEDS: PIPERACILLIN/TAZO 3.375 GM/D5W 50 ML IV SCH ×4 (03:03→19:46)
[2021-05-13] MEDS: LABETALOL HCL 5 MG/ML 20 ML VIAL IVP PRN (03:03)
[2021-05-13] MEDS: RINGERS SOLUTION,LACTATED 1,000 ML IV SCH ×3 (03:04→23:50)
[2021-05-13] MEDS: ALBUTEROL SULFATE 2.5 MG/0.5 ML NEB SOLUTION NEB SCH ×6 (03:58→23:55)
[2021-05-13] MEDS: IPRATROPIUM BROMIDE 0.5 MG/2.5 ML NEB SOLUTION NEB SCH ×6 (03:58→23:55)
[2021-05-13] MEDS: ACETYLCYSTEINE 10% 100 MG/ML 4 ML NEB SOLUTION NEB SCH ×6 (03:59→23:55)
[2021-05-13] MEDS: LOSARTAN POTASSIUM 50 MG TABLET PO SCH (08:21)
[2021-05-13] MEDS: CHOLECALCIFEROL (VIT D3) 5,000 [125 MCG] UNITS CAPSULE PO SCH (08:22)
[2021-05-13] MEDS: NIFEdipine 30 MG ER TABLET PO SCH ×2 (08:22→21:32)
[2021-05-13 08:54] LABS: BASOPHILS % (AUTO) 0.3 % (0.0-2.0); EOSINOPHILS % (AUTO) 3.5 % (1.0-6.0); HEMATOCRIT 42.8 % (41-53); HEMOGLOBIN 14.5 g/dL (13.5-17.5); LYMPHOCYTES # (AUTO) 1.8 K/uL (1.0-4.8); LYMPHOCYTES % (AUTO) 12.2 % (22.0-44.0); MEAN CORPUSCULAR HEMOGLOBIN 28.7 pg (26.0-34.0); MEAN CORPUSCULAR HGB CONC 33.7 G/dL (31.0-37.0); MEAN CORPUSCULAR VOLUME 85 fL (80-100); MONOCYTES # (AUTO) 1.5 K/uL (0.1-1.0); MONOCYTES % (AUTO) 10.6 % (2.0-9.0); NEUTROPHILS # (AUTO) 10.6 K/uL (1.8-7.7); NEUTROPHILS % (AUTO) 73.4 % (40.0-70.0); PLATELET COUNT (AUTO) 278 K/uL (150-450); RED BLOOD CELL COUNT(AUTO) 5.03 MIL/uL (4.50-5.90)
[2021-05-13 09:02] LABS: ANION GAP 9 mmol/L (8-16); CALCIUM, TOTAL 9.4 mg/dL (8.8-10.5); CARBON DIOXIDE 29 mmol/L (22-29); CHLORIDE 103 mmol/L (98-107); CREATININE 0.51 mg/dL (0.60-1.30); GLOMERULAR FILTR. RATE CALC > 60 mL/min (>60); GLUCOSE,RANDOM 99 mg/dL (70-110); POTASSIUM 3.6 mmol/L (3.5-5.1); SODIUM SERUM 141 mmol/L (136-145); UREA NITROGEN, BLOOD 6 mg/dL (7-18)
[2021-05-14] VITALS: BP 145/96
[2021-05-14] MEDS: PIPERACILLIN/TAZO 3.375 GM/D5W 50 ML IV SCH ×4 (03:09→20:38)
[2021-05-14] MEDS: IPRATROPIUM BROMIDE 0.5 MG/2.5 ML NEB SOLUTION NEB SCH ×7 (03:47→23:10)
[2021-05-14] MEDS: ACETYLCYSTEINE 10% 100 MG/ML 4 ML NEB SOLUTION NEB SCH ×6 (03:47→23:10)
[2021-05-14] MEDS: ALBUTEROL SULFATE 2.5 MG/0.5 ML NEB SOLUTION NEB SCH ×7 (03:47→23:10)
[2021-05-14 04:00] VITALS: BP 147/98
[2021-05-14 08:00] VITALS: BP 146/92
[2021-05-14 08:03] LABS: BASOPHILS % (AUTO) 0.4 % (0.0-2.0); EOSINOPHILS % (AUTO) 8.3 % (1.0-6.0); HEMATOCRIT 39.8 % (41-53); HEMOGLOBIN 13.4 g/dL (13.5-17.5); LYMPHOCYTES # (AUTO) 1.4 K/uL (1.0-4.8); LYMPHOCYTES % (AUTO) 12.7 % (22.0-44.0); MEAN CORPUSCULAR HEMOGLOBIN 28.7 pg (26.0-34.0); MEAN CORPUSCULAR HGB CONC 33.7 G/dL (31.0-37.0); MEAN CORPUSCULAR VOLUME 85 fL (80-100); MONOCYTES # (AUTO) 1.3 K/uL (0.1-1.0); MONOCYTES % (AUTO) 11.4 % (2.0-9.0); NEUTROPHILS # (AUTO) 7.4 K/uL (1.8-7.7); NEUTROPHILS % (AUTO) 67.2 % (40.0-70.0); PLATELET COUNT (AUTO) 299 K/uL (150-450); RED BLOOD CELL COUNT(AUTO) 4.68 MIL/uL (4.50-5.90)
[2021-05-14 08:12] LABS: ANION GAP 9 mmol/L (8-16); CARBON DIOXIDE 32 mmol/L (22-29); CHLORIDE 103 mmol/L (98-107); GLUCOSE,RANDOM 102 mg/dL (70-110); POTASSIUM 3.1 mmol/L (3.5-5.1); SODIUM SERUM 144 mmol/L (136-145); UREA NITROGEN, BLOOD 4 mg/dL (7-18)
[2021-05-14 08:15] LABS: GLOMERULAR FILTR. RATE CALC > 60 mL/min (>60)
[2021-05-14] MEDS: CHOLECALCIFEROL (VIT D3) 5,000 [125 MCG] UNITS CAPSULE PO SCH (08:19)
[2021-05-14] MEDS: ETHYL ALCOHOL 62% ANTISEPTIC NASAL INHALANT 0.6 ML AMPUL NASAL SCH ×2 (08:19→20:38)
[2021-05-14] MEDS: NIFEdipine 30 MG ER TABLET PO SCH ×2 (08:19→20:37)
[2021-05-14] MEDS: HEPARIN SODIUM,PORCINE 5,000 UNITS/ML VIAL SQ SCH ×3 (08:20→15:19)
[2021-05-14] MEDS: LOSARTAN POTASSIUM 50 MG TABLET PO SCH (08:20)
[2021-05-14] MEDS: RINGERS SOLUTION,LACTATED 1,000 ML IV SCH ×2 (08:21→18:05)
[2021-05-14 13:04] VITALS: BP 137/88
[2021-05-14 15:26] VITALS: BP 143/98
[2021-05-14] MEDS ORDERED: MAGNESIUM SULFATE 4 GM/WATER 100 ML IV PRN (21:00)
[2021-05-14] MEDS ORDERED: MAGNESIUM SULFATE 2 GM/WATER 50 ML IV PRN (21:00)
[2021-05-14] MEDS ORDERED: MAGNESIUM OXIDE 400 MG TABLET PO PRN (21:00)
[2021-05-14] MEDS ORDERED: POTASSIUM CHLORIDE 20 MEQ ER TABLET PO PRN (21:00)
[2021-05-14 21:30] VITALS: BP 142/89
[2021-05-15] MEDS: HEPARIN SODIUM,PORCINE 5,000 UNITS/ML VIAL SQ SCH ×3 (00:11→16:23)
[2021-05-15 01:56] VITALS: BP 141/88
[2021-05-15] MEDS: PIPERACILLIN/TAZO 3.375 GM/D5W 50 ML IV SCH ×4 (02:33→20:21)
[2021-05-15] MEDS: ACETYLCYSTEINE 10% 100 MG/ML 4 ML NEB SOLUTION NEB SCH ×6 (02:49→23:13)
[2021-05-15] MEDS: IPRATROPIUM BROMIDE 0.5 MG/2.5 ML NEB SOLUTION NEB SCH ×6 (02:49→23:13)
[2021-05-15] MEDS: ALBUTEROL SULFATE 2.5 MG/0.5 ML NEB SOLUTION NEB SCH ×6 (02:49→23:13)
[2021-05-15] MEDS: RINGERS SOLUTION,LACTATED 1,000 ML IV SCH ×2 (05:08→14:30)
[2021-05-15 05:34] VITALS: BP 156/96
[2021-05-15] MEDS: ETHYL ALCOHOL 62% ANTISEPTIC NASAL INHALANT 0.6 ML AMPUL NASAL SCH ×2 (09:16→20:21)
[2021-05-15] MEDS: CHOLECALCIFEROL (VIT D3) 5,000 [125 MCG] UNITS CAPSULE PO SCH (09:16)
[2021-05-15] MEDS: NIFEdipine 30 MG ER TABLET PO SCH ×2 (09:16→20:21)
[2021-05-15] MEDS: LOSARTAN POTASSIUM 50 MG TABLET PO SCH (09:16)
[2021-05-15 10:12] VITALS: BP 142/103
[2021-05-15 14:46] VITALS: BP 142/85
[2021-05-15 17:27] VITALS: BP 121/81
[2021-05-15] MEDS ORDERED: SODIUM CHLORIDE 0.9% 250 ML IV ONE (20:18)
[2021-05-15 21:47] VITALS: BP 144/99
[2021-05-16] MEDS: HEPARIN SODIUM,PORCINE 5,000 UNITS/ML VIAL SQ SCH ×4 (00:47→23:46)
[2021-05-16] MEDS: LABETALOL HCL 5 MG/ML 20 ML VIAL IVP PRN (01:27)
[2021-05-16 01:28] VITALS: BP 161/105
[2021-05-16] MEDS: PIPERACILLIN/TAZO 3.375 GM/D5W 50 ML IV SCH ×4 (01:33→21:10)
[2021-05-16] MEDS: ACETYLCYSTEINE 10% 100 MG/ML 4 ML NEB SOLUTION NEB SCH ×6 (02:54→23:46)
[2021-05-16] MEDS: ALBUTEROL SULFATE 2.5 MG/0.5 ML NEB SOLUTION NEB SCH ×6 (02:54→23:44)
[2021-05-16] MEDS: IPRATROPIUM BROMIDE 0.5 MG/2.5 ML NEB SOLUTION NEB SCH ×6 (02:54→23:44)
[2021-05-16 06:43] VITALS: BP 139/94
[2021-05-16 07:15] LABS: ANION GAP 3 mmol/L (8-16); CALCIUM, TOTAL 9.3 mg/dL (8.8-10.5); CARBON DIOXIDE 33 mmol/L (22-29); CHLORIDE 106 mmol/L (98-107); CREATININE 0.53 mg/dL (0.60-1.30); GLUCOSE,RANDOM 97 mg/dL (70-110); POTASSIUM 3.2 mmol/L (3.5-5.1); SODIUM SERUM 142 mmol/L (136-145); UREA NITROGEN, BLOOD 6 mg/dL (7-18)
[2021-05-16 07:18] LABS: GLOMERULAR FILTR. RATE CALC > 60 mL/min (>60)
[2021-05-16] MEDS: ETHYL ALCOHOL 62% ANTISEPTIC NASAL INHALANT 0.6 ML AMPUL NASAL SCH ×2 (08:15→21:10)
[2021-05-16] MEDS: NIFEdipine 30 MG ER TABLET PO SCH ×2 (08:15→21:10)
[2021-05-16] MEDS: LOSARTAN POTASSIUM 50 MG TABLET PO SCH (08:17)
[2021-05-16 08:18] VITALS: BP 151/93
[2021-05-16] MEDS: CHOLECALCIFEROL (VIT D3) 5,000 [125 MCG] UNITS CAPSULE PO SCH (08:26)
[2021-05-16 11:16] VITALS: BP 151/99
[2021-05-16] MEDS: POTASSIUM CHL 10 MEQ/WATER 50 ML IV PRN ×3 (14:44→17:40)
[2021-05-16 16:06] VITALS: BP 146/97
[2021-05-16 19:10] VITALS: BP 150/99
[2021-05-16] MEDS: ACETAMINOPHEN 325 MG TABLET PO PRN (23:47)
[2021-05-17 00:20] VITALS: BP 151/95
[2021-05-17] MEDS: ALBUTEROL SULFATE 2.5 MG/0.5 ML NEB SOLUTION NEB SCH ×6 (02:17→23:52)
[2021-05-17] MEDS: IPRATROPIUM BROMIDE 0.5 MG/2.5 ML NEB SOLUTION NEB SCH ×6 (02:17→23:52)
[2021-05-17] MEDS: ACETYLCYSTEINE 10% 100 MG/ML 4 ML NEB SOLUTION NEB SCH ×6 (02:17→23:52)
[2021-05-17 04:15] VITALS: BP 152/89
[2021-05-17] MEDS: PIPERACILLIN/TAZO 3.375 GM/D5W 50 ML IV SCH ×4 (04:31→21:05)
[2021-05-17 07:30] VITALS: BP 135/93
[2021-05-17 07:44] LABS: POTASSIUM 3.9 mmol/L (3.5-5.1)
[2021-05-17] MEDS: CHOLECALCIFEROL (VIT D3) 5,000 [125 MCG] UNITS CAPSULE PO SCH (08:50)
[2021-05-17] MEDS: HEPARIN SODIUM,PORCINE 5,000 UNITS/ML VIAL SQ SCH ×2 (08:50→15:00)
[2021-05-17] MEDS: LOSARTAN POTASSIUM 50 MG TABLET PO SCH (08:51)
[2021-05-17] MEDS: NIFEdipine 30 MG ER TABLET PO SCH ×2 (08:51→21:05)
[2021-05-17] MEDS: ETHYL ALCOHOL 62% ANTISEPTIC NASAL INHALANT 0.6 ML AMPUL NASAL SCH ×2 (08:51→21:05)
[2021-05-17 11:41] VITALS: BP 138/89
[2021-05-17 15:20] VITALS: BP 154/98
[2021-05-17 19:51] VITALS: BP 145/102
[2021-05-18 00:10] VITALS: BP 146/97
[2021-05-18] MEDS: HydrALAZINE HCL 20 MG/ML VIAL IVP PRN (00:27)
[2021-05-18] MEDS: HEPARIN SODIUM,PORCINE 5,000 UNITS/ML VIAL SQ SCH ×4 (00:27→23:50)
[2021-05-18] MEDS: ACETAMINOPHEN 325 MG TABLET PO PRN (00:50)
[2021-05-18] MEDS ORDERED: DIGOXIN 250 MCG/ML 2 ML AMP IVP ONE (01:30)
[2021-05-18] MEDS ORDERED: SODIUM CHLORIDE 0.9% 250 ML IV ONE (03:33)
[2021-05-18] MEDS: PIPERACILLIN/TAZO 3.375 GM/D5W 50 ML IV SCH ×4 (03:41→20:05)
[2021-05-18 04:12] VITALS: BP 134/81
[2021-05-18] MEDS: IPRATROPIUM BROMIDE 0.5 MG/2.5 ML NEB SOLUTION NEB SCH ×6 (04:18→23:55)
[2021-05-18] MEDS: ACETYLCYSTEINE 10% 100 MG/ML 4 ML NEB SOLUTION NEB SCH ×6 (04:18→23:55)
[2021-05-18] MEDS: ALBUTEROL SULFATE 2.5 MG/0.5 ML NEB SOLUTION NEB SCH ×6 (04:18→23:55)
[2021-05-18 07:40] VITALS: BP 144/95
[2021-05-18] MEDS: NIFEdipine 30 MG ER TABLET PO SCH ×2 (09:00→20:05)
[2021-05-18] MEDS: ETHYL ALCOHOL 62% ANTISEPTIC NASAL INHALANT 0.6 ML AMPUL NASAL SCH ×2 (09:10→20:05)
[2021-05-18] MEDS: CHOLECALCIFEROL (VIT D3) 5,000 [125 MCG] UNITS CAPSULE PO SCH (09:11)
[2021-05-18] MEDS: LOSARTAN POTASSIUM 50 MG TABLET PO SCH (09:11)
[2021-05-18 12:30] VITALS: BP 137/91
[2021-05-18 16:20] VITALS: BP 135/82
[2021-05-18 19:45] VITALS: BP 140/93
[2021-05-19 00:18] VITALS: BP 129/75
[2021-05-19] MEDS: PIPERACILLIN/TAZO 3.375 GM/D5W 50 ML IV SCH ×4 (01:44→20:07)
[2021-05-19] MEDS: ACETYLCYSTEINE 10% 100 MG/ML 4 ML NEB SOLUTION NEB SCH ×6 (03:44→23:28)
[2021-05-19] MEDS: IPRATROPIUM BROMIDE 0.5 MG/2.5 ML NEB SOLUTION NEB SCH ×6 (03:44→23:30)
[2021-05-19] MEDS: ALBUTEROL SULFATE 2.5 MG/0.5 ML NEB SOLUTION NEB SCH ×6 (03:44→23:27)
[2021-05-19 05:12] VITALS: BP 141/94
[2021-05-19 07:34] VITALS: BP 136/88
[2021-05-19 08:15] LABS: THYROID STIMULATING HORMONE 0.49 uIU/mL (0.36-3.74)
[2021-05-19] MEDS: LOSARTAN POTASSIUM 50 MG TABLET PO SCH (09:05)
[2021-05-19] MEDS: ETHYL ALCOHOL 62% ANTISEPTIC NASAL INHALANT 0.6 ML AMPUL NASAL SCH ×2 (09:05→20:07)
[2021-05-19] MEDS: HEPARIN SODIUM,PORCINE 5,000 UNITS/ML VIAL SQ SCH ×3 (09:05→23:26)
[2021-05-19] MEDS: NIFEdipine 30 MG ER TABLET PO SCH ×2 (09:06→20:07)
[2021-05-19] MEDS: CHOLECALCIFEROL (VIT D3) 5,000 [125 MCG] UNITS CAPSULE PO SCH (09:07)
[2021-05-19 11:34] VITALS: BP 128/93
[2021-05-19 12:42] LABS: BASOPHILS % (AUTO) 0.5 % (0.0-2.0); EOSINOPHILS % (AUTO) 5.7 % (1.0-6.0); HEMATOCRIT 38.9 % (41-53); HEMOGLOBIN 12.7 g/dL (13.5-17.5); LYMPHOCYTES # (AUTO) 1.6 K/uL (1.0-4.8); LYMPHOCYTES % (AUTO) 13.9 % (22.0-44.0); MEAN CORPUSCULAR HEMOGLOBIN 28.3 pg (26.0-34.0); MEAN CORPUSCULAR HGB CONC 32.7 G/dL (31.0-37.0); MEAN CORPUSCULAR VOLUME 87 fL (80-100); MONOCYTES # (AUTO) 1.1 K/uL (0.1-1.0); MONOCYTES % (AUTO) 9.8 % (2.0-9.0); NEUTROPHILS % (AUTO) 70.1 % (40.0-70.0); PLATELET COUNT (AUTO) 348 K/uL (150-450); RED BLOOD CELL COUNT(AUTO) 4.49 MIL/uL (4.50-5.90); RED CELL DISTRIBUTION WIDTH 14.6 % (11.5-14.5)
[2021-05-19 12:52] LABS: ALANINE AMINOTRANSFERASE 75 U/L (12-78); ALBUMIN 2.3 g/dL (3.4-5.0); ALKALINE PHOSPHATASE 41 U/L (46-116); ANION GAP 15 mmol/L (8-16); ASPARTATE AMINOTRANSFERASE 42 U/L (15-37); BILIRUBIN,TOTAL 0.2 mg/dL (0.1-1.0); CALCIUM, TOTAL 9.5 mg/dL (8.8-10.5); CARBON DIOXIDE 25 mmol/L (22-29); CHLORIDE 106 mmol/L (98-107); CREATININE 0.57 mg/dL (0.60-1.30); GLUCOSE,RANDOM 106 mg/dL (70-110); POTASSIUM 3.6 mmol/L (3.5-5.1); SODIUM SERUM 146 mmol/L (136-145); TOTAL PROTEIN, SERUM 6.9 g/dL (6.4-8.2); UREA NITROGEN, BLOOD 13 mg/dL (7-18)
[2021-05-19 12:53] LABS: GLOMERULAR FILTR. RATE CALC > 60 mL/min (>60)
[2021-05-19 15:48] VITALS: BP 139/93
[2021-05-19 20:01] VITALS: BP 136/93
[2021-05-20 00:31] VITALS: BP 127/80
[2021-05-20] MEDS: PIPERACILLIN/TAZO 3.375 GM/D5W 50 ML IV SCH ×4 (01:33→21:35)
[2021-05-20] MEDS: ALBUTEROL SULFATE 2.5 MG/0.5 ML NEB SOLUTION NEB SCH ×6 (03:21→23:04)
[2021-05-20] MEDS: ACETYLCYSTEINE 10% 100 MG/ML 4 ML NEB SOLUTION NEB SCH ×6 (03:21→23:04)
[2021-05-20] MEDS: IPRATROPIUM BROMIDE 0.5 MG/2.5 ML NEB SOLUTION NEB SCH ×6 (03:21→23:04)
[2021-05-20 04:29] VITALS: BP 131/90
[2021-05-20 08:05] VITALS: BP 133/90
[2021-05-20] MEDS: NIFEdipine 30 MG ER TABLET PO SCH ×2 (08:07→21:35)
[2021-05-20] MEDS: LOSARTAN POTASSIUM 50 MG TABLET PO SCH (08:09)
[2021-05-20] MEDS: HEPARIN SODIUM,PORCINE 5,000 UNITS/ML VIAL SQ SCH ×3 (08:09→23:48)
[2021-05-20] MEDS: ETHYL ALCOHOL 62% ANTISEPTIC NASAL INHALANT 0.6 ML AMPUL NASAL SCH ×2 (08:09→21:35)
[2021-05-20] MEDS: CHOLECALCIFEROL (VIT D3) 5,000 [125 MCG] UNITS CAPSULE PO SCH (08:09)
[2021-05-20 11:38] VITALS: BP 119/78
[2021-05-20 17:02] VITALS: BP 127/77
[2021-05-20 21:45] VITALS: BP 129/92
[2021-05-21 00:46] VITALS: BP 126/76
[2021-05-21] MEDS: IPRATROPIUM BROMIDE 0.5 MG/2.5 ML NEB SOLUTION NEB SCH ×6 (03:33→23:15)
[2021-05-21] MEDS: ALBUTEROL SULFATE 2.5 MG/0.5 ML NEB SOLUTION NEB SCH ×6 (03:33→23:15)
[2021-05-21] MEDS: ACETYLCYSTEINE 10% 100 MG/ML 4 ML NEB SOLUTION NEB SCH ×6 (03:33→23:15)
[2021-05-21] MEDS: PIPERACILLIN/TAZO 3.375 GM/D5W 50 ML IV SCH ×4 (03:45→20:57)
[2021-05-21 04:53] VITALS: BP 125/79
[2021-05-21] MEDS: ETHYL ALCOHOL 62% ANTISEPTIC NASAL INHALANT 0.6 ML AMPUL NASAL SCH ×2 (09:00→20:57)
[2021-05-21 09:14] VITALS: BP 130/86
[2021-05-21] MEDS: CHOLECALCIFEROL (VIT D3) 5,000 [125 MCG] UNITS CAPSULE PO SCH (09:25)
[2021-05-21] MEDS: LOSARTAN POTASSIUM 50 MG TABLET PO SCH (09:26)
[2021-05-21] MEDS: HEPARIN SODIUM,PORCINE 5,000 UNITS/ML VIAL SQ SCH ×2 (09:26→16:37)
[2021-05-21] MEDS: NIFEdipine 30 MG ER TABLET PO SCH ×2 (09:26→20:57)
[2021-05-21 13:16] VITALS: BP 110/76
[2021-05-21 20:00] VITALS: BP 128/78
[2021-05-22] VITALS (7 sets, daily range): BP systolic 128–146; BP diastolic 76–102
[2021-05-22] MEDS: HEPARIN SODIUM,PORCINE 5,000 UNITS/ML VIAL SQ SCH ×4 (00:37→23:12)
[2021-05-22] MEDS: PIPERACILLIN/TAZO 3.375 GM/D5W 50 ML IV SCH ×4 (02:00→20:04)
[2021-05-22] MEDS: IPRATROPIUM BROMIDE 0.5 MG/2.5 ML NEB SOLUTION NEB SCH ×6 (03:02→23:55)
[2021-05-22] MEDS: ALBUTEROL SULFATE 2.5 MG/0.5 ML NEB SOLUTION NEB SCH ×6 (03:02→23:55)
[2021-05-22] MEDS: ACETYLCYSTEINE 10% 100 MG/ML 4 ML NEB SOLUTION NEB SCH ×6 (03:03→23:55)
[2021-05-22] MEDS: LOSARTAN POTASSIUM 50 MG TABLET PO SCH (08:15)
[2021-05-22] MEDS: NIFEdipine 30 MG ER TABLET PO SCH ×2 (08:15→20:04)
[2021-05-22] MEDS: CHOLECALCIFEROL (VIT D3) 5,000 [125 MCG] UNITS CAPSULE PO SCH (08:16)
[2021-05-22] MEDS: ETHYL ALCOHOL 62% ANTISEPTIC NASAL INHALANT 0.6 ML AMPUL NASAL SCH ×2 (08:18→20:03)
[2021-05-22] MEDS: HydrALAZINE HCL 20 MG/ML VIAL IVP PRN ×2 (15:39→23:45)
[2021-05-23 00:09] VITALS: BP 152/88
[2021-05-23] MEDS: PIPERACILLIN/TAZO 3.375 GM/D5W 50 ML IV SCH ×4 (02:02→20:30)
[2021-05-23] MEDS: IPRATROPIUM BROMIDE 0.5 MG/2.5 ML NEB SOLUTION NEB SCH ×6 (03:04→23:02)
[2021-05-23] MEDS: ALBUTEROL SULFATE 2.5 MG/0.5 ML NEB SOLUTION NEB SCH ×6 (03:04→23:02)
[2021-05-23] MEDS: ACETYLCYSTEINE 10% 100 MG/ML 4 ML NEB SOLUTION NEB SCH ×6 (03:07→23:03)
[2021-05-23 04:37] VITALS: BP 134/89
[2021-05-23 07:03] VITALS: BP 136/82
[2021-05-23 07:31] LABS: BASOPHILS % (AUTO) 0.8 % (0.0-2.0); HEMOGLOBIN 12.3 g/dL (13.5-17.5); LYMPHOCYTES # (AUTO) 1.4 K/uL (1.0-4.8); LYMPHOCYTES % (AUTO) 16.8 % (22.0-44.0); MEAN CORPUSCULAR HEMOGLOBIN 28.7 pg (26.0-34.0); MEAN CORPUSCULAR HGB CONC 33.4 G/dL (31.0-37.0); MEAN CORPUSCULAR VOLUME 86 fL (80-100); MONOCYTES # (AUTO) 0.9 K/uL (0.1-1.0); MONOCYTES % (AUTO) 10.8 % (2.0-9.0); NEUTROPHILS # (AUTO) 5.2 K/uL (1.8-7.7); NEUTROPHILS % (AUTO) 64.6 % (40.0-70.0); PLATELET COUNT (AUTO) 377 K/uL (150-450); RED CELL DISTRIBUTION WIDTH 14.6 % (11.5-14.5)
[2021-05-23 07:40] LABS: ANION GAP 7 mmol/L (8-16); CALCIUM, TOTAL 9.5 mg/dL (8.8-10.5); CARBON DIOXIDE 27 mmol/L (22-29); CHLORIDE 109 mmol/L (98-107); CREATININE 0.43 mg/dL (0.60-1.30); GLUCOSE,RANDOM 80 mg/dL (70-110); POTASSIUM 3.3 mmol/L (3.5-5.1); SODIUM SERUM 143 mmol/L (136-145); UREA NITROGEN, BLOOD 11 mg/dL (7-18)
[2021-05-23] MEDS: NIFEdipine 30 MG ER TABLET PO SCH ×2 (07:40→20:31)
[2021-05-23] MEDS: CHOLECALCIFEROL (VIT D3) 5,000 [125 MCG] UNITS CAPSULE PO SCH (07:40)
[2021-05-23] MEDS: LOSARTAN POTASSIUM 50 MG TABLET PO SCH (07:40)
[2021-05-23] MEDS: HEPARIN SODIUM,PORCINE 5,000 UNITS/ML VIAL SQ SCH ×3 (07:42→23:56)
[2021-05-23 07:44] LABS: GLOMERULAR FILTR. RATE CALC > 60 mL/min (>60)
[2021-05-23] MEDS: ETHYL ALCOHOL 62% ANTISEPTIC NASAL INHALANT 0.6 ML AMPUL NASAL SCH ×2 (07:51→20:31)
[2021-05-23] MEDS: POTASSIUM CHL 10 MEQ/WATER 50 ML IV PRN ×2 (08:41→11:19)
[2021-05-23 11:48] VITALS: BP 132/76
[2021-05-23 15:25] VITALS: BP 124/80
[2021-05-23 19:51] VITALS: BP 145/94
[2021-05-23] MEDS: HydrALAZINE HCL 20 MG/ML VIAL IVP PRN (21:18)
[2021-05-24] VITALS (7 sets, daily range): BP systolic 123–148; BP diastolic 77–99
[2021-05-24] MEDS: PIPERACILLIN/TAZO 3.375 GM/D5W 50 ML IV SCH ×4 (02:28→20:00)
[2021-05-24] MEDS: IPRATROPIUM BROMIDE 0.5 MG/2.5 ML NEB SOLUTION NEB SCH ×6 (03:04→22:55)
[2021-05-24] MEDS: ALBUTEROL SULFATE 2.5 MG/0.5 ML NEB SOLUTION NEB SCH ×6 (03:04→22:55)
[2021-05-24] MEDS: ACETYLCYSTEINE 10% 100 MG/ML 4 ML NEB SOLUTION NEB SCH ×5 (03:04→19:15)
[2021-05-24 07:19] LABS: EOSINOPHILS % (AUTO) 8.7 % (1.0-6.0); HEMATOCRIT 35.5 % (41-53); HEMOGLOBIN 12.1 g/dL (13.5-17.5); LYMPHOCYTES % (AUTO) 13.6 % (22.0-44.0); MEAN CORPUSCULAR HEMOGLOBIN 29.1 pg (26.0-34.0); MEAN CORPUSCULAR HGB CONC 34.2 G/dL (31.0-37.0); MEAN CORPUSCULAR VOLUME 85 fL (80-100); MONOCYTES # (AUTO) 0.7 K/uL (0.1-1.0); MONOCYTES % (AUTO) 9.9 % (2.0-9.0); NEUTROPHILS # (AUTO) 4.8 K/uL (1.8-7.7); NEUTROPHILS % (AUTO) 66.8 % (40.0-70.0); PLATELET COUNT (AUTO) 381 K/uL (150-450); RED BLOOD CELL COUNT(AUTO) 4.16 MIL/uL (4.50-5.90)
[2021-05-24 07:44] LABS: ANION GAP 10 mmol/L (8-16); CALCIUM, TOTAL 9.4 mg/dL (8.8-10.5); CARBON DIOXIDE 26 mmol/L (22-29); CHLORIDE 110 mmol/L (98-107); CREATININE 0.52 mg/dL (0.60-1.30); GLUCOSE,RANDOM 90 mg/dL (70-110); POTASSIUM 3.2 mmol/L (3.5-5.1); SODIUM SERUM 146 mmol/L (136-145); UREA NITROGEN, BLOOD 11 mg/dL (7-18)
[2021-05-24 07:45] LABS: GLOMERULAR FILTR. RATE CALC > 60 mL/min (>60)
[2021-05-24] MEDS: HEPARIN SODIUM,PORCINE 5,000 UNITS/ML VIAL SQ SCH ×4 (08:00→22:13)
[2021-05-24] MEDS: HydrALAZINE HCL 20 MG/ML VIAL IVP PRN (08:12)
[2021-05-24] MEDS: ETHYL ALCOHOL 62% ANTISEPTIC NASAL INHALANT 0.6 ML AMPUL NASAL SCH ×2 (08:12→22:12)
[2021-05-24] MEDS: POTASSIUM CHL 10 MEQ/WATER 50 ML IV PRN ×2 (08:13→09:42)
[2021-05-24] MEDS ORDERED: SODIUM CHLORIDE 0.9% 100 ML ONE (08:26)
[2021-05-24] MEDS: CHOLECALCIFEROL (VIT D3) 5,000 [125 MCG] UNITS CAPSULE PO SCH (09:00)
[2021-05-24] MEDS: NIFEdipine 30 MG ER TABLET PO SCH ×2 (09:00→21:00)
[2021-05-24] MEDS: LOSARTAN POTASSIUM 50 MG TABLET PO SCH (09:00)
[2021-05-25] MEDS: ACETYLCYSTEINE 10% 100 MG/ML 4 ML NEB SOLUTION NEB SCH ×7 (03:11→23:59)
[2021-05-25] MEDS: IPRATROPIUM BROMIDE 0.5 MG/2.5 ML NEB SOLUTION NEB SCH ×6 (03:12→23:59)
[2021-05-25] MEDS: ALBUTEROL SULFATE 2.5 MG/0.5 ML NEB SOLUTION NEB SCH ×6 (03:12→23:59)
[2021-05-25] MEDS: PIPERACILLIN/TAZO 3.375 GM/D5W 50 ML IV SCH ×4 (03:13→20:55)
[2021-05-25 04:12] VITALS: BP 134/87
[2021-05-25 07:26] VITALS: BP 128/84
[2021-05-25 07:50] LABS: BASOPHILS % (AUTO) 1.1 % (0.0-2.0); HEMOGLOBIN 12.5 g/dL (13.5-17.5); LYMPHOCYTES # (AUTO) 1.2 K/uL (1.0-4.8); LYMPHOCYTES % (AUTO) 19.3 % (22.0-44.0); MEAN CORPUSCULAR HGB CONC 33.7 G/dL (31.0-37.0); MEAN CORPUSCULAR VOLUME 86 fL (80-100); MONOCYTES # (AUTO) 0.7 K/uL (0.1-1.0); MONOCYTES % (AUTO) 11.3 % (2.0-9.0); NEUTROPHILS # (AUTO) 3.7 K/uL (1.8-7.7); NEUTROPHILS % (AUTO) 60.3 % (40.0-70.0); PLATELET COUNT (AUTO) 341 K/uL (150-450); RED BLOOD CELL COUNT(AUTO) 4.31 MIL/uL (4.50-5.90); RED CELL DISTRIBUTION WIDTH 14.7 % (11.5-14.5)
[2021-05-25 07:58] LABS: ANION GAP 7 mmol/L (8-16); CALCIUM, TOTAL 9.5 mg/dL (8.8-10.5); CARBON DIOXIDE 27 mmol/L (22-29); CHLORIDE 111 mmol/L (98-107); CREATININE 0.48 mg/dL (0.60-1.30); GLUCOSE,RANDOM 80 mg/dL (70-110); POTASSIUM 3.9 mmol/L (3.5-5.1); SODIUM SERUM 145 mmol/L (136-145); UREA NITROGEN, BLOOD 11 mg/dL (7-18)
[2021-05-25 07:59] LABS: GLOMERULAR FILTR. RATE CALC > 60 mL/min (>60)
[2021-05-25] MEDS: HEPARIN SODIUM,PORCINE 5,000 UNITS/ML VIAL SQ SCH ×3 (08:41→20:56)
[2021-05-25] MEDS: LOSARTAN POTASSIUM 50 MG TABLET PO SCH (08:46)
[2021-05-25] MEDS: NIFEdipine 30 MG ER TABLET PO SCH ×2 (08:46→19:30)
[2021-05-25] MEDS: CHOLECALCIFEROL (VIT D3) 5,000 [125 MCG] UNITS CAPSULE PO SCH (08:47)
[2021-05-25] MEDS: ETHYL ALCOHOL 62% ANTISEPTIC NASAL INHALANT 0.6 ML AMPUL NASAL SCH ×2 (11:09→20:55)
[2021-05-25 19:36] VITALS: BP 162/98
[2021-05-25] MEDS: HydrALAZINE HCL 20 MG/ML VIAL IVP PRN (20:56)
[2021-05-26] MEDS: PIPERACILLIN/TAZO 3.375 GM/D5W 50 ML IV SCH ×4 (01:20→20:39)
[2021-05-26] MEDS: ALBUTEROL SULFATE 2.5 MG/0.5 ML NEB SOLUTION NEB SCH ×5 (03:16→23:20)
[2021-05-26] MEDS: IPRATROPIUM BROMIDE 0.5 MG/2.5 ML NEB SOLUTION NEB SCH ×5 (03:16→23:20)
[2021-05-26] MEDS: ACETYLCYSTEINE 10% 100 MG/ML 4 ML NEB SOLUTION NEB SCH ×5 (03:16→23:20)
[2021-05-26 05:13] VITALS: BP 152/89
[2021-05-26 07:04] LABS: MAGNESIUM 1.8 mg/dL (1.80-2.40); PHOSPHORUS 2.8 mg/dL (2.5-4.9)
[2021-05-26 08:07] VITALS: BP 142/97
[2021-05-26] MEDS: LOSARTAN POTASSIUM 50 MG TABLET PO SCH (08:17)
[2021-05-26] MEDS: NIFEdipine 30 MG ER TABLET PO SCH ×2 (08:17→20:39)
[2021-05-26] MEDS: ETHYL ALCOHOL 62% ANTISEPTIC NASAL INHALANT 0.6 ML AMPUL NASAL SCH ×2 (08:17→20:39)
[2021-05-26] MEDS: CHOLECALCIFEROL (VIT D3) 5,000 [125 MCG] UNITS CAPSULE PO SCH (08:18)
[2021-05-26] MEDS ORDERED: SODIUM CHLORIDE 0.9% 1,000 ML ONE (11:16)
[2021-05-26 14:11] VITALS: BP 138/82
[2021-05-26 16:10] VITALS: BP 147/83
[2021-05-26 19:10] VITALS: BP 119/67
[2021-05-27] MEDS: PIPERACILLIN/TAZO 3.375 GM/D5W 50 ML IV SCH ×4 (01:14→20:52)
[2021-05-27] MEDS: ACETYLCYSTEINE 10% 100 MG/ML 4 ML NEB SOLUTION NEB SCH ×6 (03:02→23:28)
[2021-05-27] MEDS: ALBUTEROL SULFATE 2.5 MG/0.5 ML NEB SOLUTION NEB SCH ×6 (03:02→23:28)
[2021-05-27] MEDS: IPRATROPIUM BROMIDE 0.5 MG/2.5 ML NEB SOLUTION NEB SCH ×6 (03:02→23:28)
[2021-05-27 04:00] VITALS: BP 128/80
[2021-05-27] MEDS ORDERED: 0.9% SODIUM CHLORIDE 10 ML VIAL IVP ONE (06:02)
[2021-05-27] MEDS ORDERED: LIDOCAINE/PF 2% 5 ML VIAL IM ONE (06:02)
[2021-05-27] MEDS ORDERED: PROPOFOL 1% 20 ML VIAL IVP ONE (06:02)
[2021-05-27 07:51] LABS: BASOPHILS % (AUTO) 1.1 % (0.0-2.0); EOSINOPHILS % (AUTO) 2.8 % (1.0-6.0); HEMATOCRIT 33.7 % (41-53); HEMOGLOBIN 11.4 g/dL (13.5-17.5); LYMPHOCYTES # (AUTO) 0.9 K/uL (1.0-4.8); LYMPHOCYTES % (AUTO) 15.4 % (22.0-44.0); MEAN CORPUSCULAR HEMOGLOBIN 28.9 pg (26.0-34.0); MEAN CORPUSCULAR HGB CONC 33.7 G/dL (31.0-37.0); MEAN CORPUSCULAR VOLUME 86 fL (80-100); MONOCYTES # (AUTO) 0.9 K/uL (0.1-1.0); NEUTROPHILS % (AUTO) 65.7 % (40.0-70.0); PLATELET COUNT (AUTO) 374 K/uL (150-450); RED BLOOD CELL COUNT(AUTO) 3.94 MIL/uL (4.50-5.90); RED CELL DISTRIBUTION WIDTH 14.7 % (11.5-14.5)
[2021-05-27 07:53] VITALS: BP 133/87
[2021-05-27 08:03] LABS: ALANINE AMINOTRANSFERASE 51 U/L (12-78); ALBUMIN 2.5 g/dL (3.4-5.0); ALKALINE PHOSPHATASE 42 U/L (46-116); ANION GAP 11 mmol/L (8-16); ASPARTATE AMINOTRANSFERASE 27 U/L (15-37); BILIRUBIN,TOTAL 0.3 mg/dL (0.1-1.0); CALCIUM, TOTAL 9.4 mg/dL (8.8-10.5); CARBON DIOXIDE 26 mmol/L (22-29); CHLORIDE 116 mmol/L (98-107); CREATININE 0.45 mg/dL (0.60-1.30); GLUCOSE,RANDOM 97 mg/dL (70-110); SODIUM SERUM 153 mmol/L (136-145); TOTAL PROTEIN, SERUM 6.7 g/dL (6.4-8.2); UREA NITROGEN, BLOOD 9 mg/dL (7-18)
[2021-05-27 08:11] LABS: GLOMERULAR FILTR. RATE CALC > 60 mL/min (>60); POTASSIUM 2.9 mmol/L (3.5-5.1)
[2021-05-27] MEDS ORDERED: SODIUM CHLORIDE 0.9% 250 ML IV ONE (08:22)
[2021-05-27] MEDS: POTASSIUM CHL 10 MEQ/WATER 50 ML IV PRN ×4 (08:37→12:48)
[2021-05-27] MEDS: NIFEdipine 30 MG ER TABLET PO SCH (09:00)
[2021-05-27] MEDS: CHOLECALCIFEROL (VIT D3) 5,000 [125 MCG] UNITS CAPSULE PO SCH (09:00)
[2021-05-27] MEDS: LOSARTAN POTASSIUM 50 MG TABLET PO SCH (09:12)
[2021-05-27] MEDS: ETHYL ALCOHOL 62% ANTISEPTIC NASAL INHALANT 0.6 ML AMPUL NASAL SCH ×2 (09:52→20:51)
[2021-05-27] MEDS ORDERED: CloNIDine 0.1 MG/24 HOUR PATCH TD SCH (10:30)
[2021-05-27] MEDS: DEXTROSE 5%-WATER 1,000 ML IV SCH ×2 (10:39→23:35)
[2021-05-27 13:19] VITALS: BP 127/79
[2021-05-27 20:08] VITALS: BP 145/90
[2021-05-28] MEDS: PIPERACILLIN/TAZO 3.375 GM/D5W 50 ML IV SCH (02:49)
[2021-05-28] MEDS: IPRATROPIUM BROMIDE 0.5 MG/2.5 ML NEB SOLUTION NEB SCH ×5 (03:20→23:21)
[2021-05-28] MEDS: ALBUTEROL SULFATE 2.5 MG/0.5 ML NEB SOLUTION NEB SCH ×6 (03:20→23:21)
[2021-05-28] MEDS: ACETYLCYSTEINE 10% 100 MG/ML 4 ML NEB SOLUTION NEB SCH ×6 (03:20→23:21)
[2021-05-28 04:48] VITALS: BP 145/88
[2021-05-28 08:15] LABS: BASOPHILS % (AUTO) 1.3 % (0.0-2.0); EOSINOPHILS % (AUTO) 7.9 % (1.0-6.0); HEMATOCRIT 32.5 % (41-53); HEMOGLOBIN 10.9 g/dL (13.5-17.5); LYMPHOCYTES # (AUTO) 1.1 K/uL (1.0-4.8); LYMPHOCYTES % (AUTO) 23.7 % (22.0-44.0); MEAN CORPUSCULAR HEMOGLOBIN 28.6 pg (26.0-34.0); MEAN CORPUSCULAR HGB CONC 33.7 G/dL (31.0-37.0); MEAN CORPUSCULAR VOLUME 85 fL (80-100); MONOCYTES # (AUTO) 0.8 K/uL (0.1-1.0); MONOCYTES % (AUTO) 17.5 % (2.0-9.0); NEUTROPHILS # (AUTO) 2.3 K/uL (1.8-7.7); NEUTROPHILS % (AUTO) 49.6 % (40.0-70.0); PLATELET COUNT (AUTO) 322 K/uL (150-450); RED BLOOD CELL COUNT(AUTO) 3.82 MIL/uL (4.50-5.90); RED CELL DISTRIBUTION WIDTH 14.8 % (11.5-14.5)
[2021-05-28 08:31] LABS: ALANINE AMINOTRANSFERASE 38 U/L (12-78); ALBUMIN 2.3 g/dL (3.4-5.0); ALKALINE PHOSPHATASE 37 U/L (46-116); ANION GAP 9 mmol/L (8-16); ASPARTATE AMINOTRANSFERASE 22 U/L (15-37); BILIRUBIN,TOTAL 0.3 mg/dL (0.1-1.0); CARBON DIOXIDE 26 mmol/L (22-29); CHLORIDE 109 mmol/L (98-107); GLUCOSE,RANDOM 129 mg/dL (70-110); SODIUM SERUM 144 mmol/L (136-145); TOTAL PROTEIN, SERUM 6.2 g/dL (6.4-8.2); UREA NITROGEN, BLOOD 7 mg/dL (7-18)
[2021-05-28 08:41] VITALS: BP 109/67
[2021-05-28 08:42] LABS: GLOMERULAR FILTR. RATE CALC > 60 mL/min (>60); POTASSIUM 2.9 mmol/L (3.5-5.1)
[2021-05-28] MEDS ORDERED: SODIUM CHLORIDE 0.9% 100 ML ONE (08:59)
[2021-05-28] MEDS: LOSARTAN POTASSIUM 50 MG TABLET PO SCH (09:05)
[2021-05-28] MEDS: ETHYL ALCOHOL 62% ANTISEPTIC NASAL INHALANT 0.6 ML AMPUL NASAL SCH ×2 (09:05→21:00)
[2021-05-28] MEDS: POTASSIUM CHL 10 MEQ/WATER 50 ML IV PRN (09:06)
[2021-05-28] MEDS ORDERED: POTASSIUM CHLORIDE 10% 40 MEQ/30 ML LIQUID UDCUP PEG ONE (09:15)
[2021-05-28] MEDS: POTASSIUM CHL 10 MEQ/WATER 50 ML IV SCH ×4 (11:24→14:46)
[2021-05-28] MEDS: TAZOBACTAM IV SCH ×3 (11:28→22:26)
[2021-05-28] MEDS: WATER IV SCH ×3 (11:28→22:26)
[2021-05-28] MEDS: DEXTROSE 5% IV SCH ×3 (11:28→22:26)
[2021-05-28] MEDS: PIPERACILLIN SODIUM IV SCH ×3 (11:28→22:26)
[2021-05-28 14:28] VITALS: BP 134/76
[2021-05-28] MEDS: DEXTROSE 5%-WATER 1,000 ML IV SCH (16:59)
[2021-05-28 19:47] VITALS: BP 131/89
[2021-05-28] MEDS: ACETAMINOPHEN 325 MG TABLET PO PRN (22:27)
[2021-05-29] MEDS: DEXTROSE 5%-WATER 1,000 ML IV SCH (02:15)
[2021-05-29] MEDS: IPRATROPIUM BROMIDE 0.5 MG/2.5 ML NEB SOLUTION NEB SCH ×3 (03:56→16:17)
[2021-05-29] MEDS: ACETYLCYSTEINE 10% 100 MG/ML 4 ML NEB SOLUTION NEB SCH ×4 (03:56→16:17)
[2021-05-29] MEDS: ALBUTEROL SULFATE 2.5 MG/0.5 ML NEB SOLUTION NEB SCH ×4 (03:56→16:17)
[2021-05-29] MEDS: DEXTROSE 5% IV SCH ×2 (04:00→09:22)
[2021-05-29] MEDS: PIPERACILLIN SODIUM IV SCH ×2 (04:00→09:22)
[2021-05-29] MEDS: WATER IV SCH ×2 (04:00→09:22)
[2021-05-29] MEDS: TAZOBACTAM IV SCH ×2 (04:00→09:22)
[2021-05-29 04:33] VITALS: BP 122/70
[2021-05-29 07:24] LABS: EOSINOPHILS % (AUTO) 11.4 % (1.0-6.0); HEMATOCRIT 32.2 % (41-53); HEMOGLOBIN 11.1 g/dL (13.5-17.5); LYMPHOCYTES % (AUTO) 30.8 % (22.0-44.0); MEAN CORPUSCULAR HEMOGLOBIN 29.1 pg (26.0-34.0); MEAN CORPUSCULAR HGB CONC 34.3 G/dL (31.0-37.0); MEAN CORPUSCULAR VOLUME 85 fL (80-100); MONOCYTES # (AUTO) 0.6 K/uL (0.1-1.0); MONOCYTES % (AUTO) 16.9 % (2.0-9.0); NEUTROPHILS # (AUTO) 1.3 K/uL (1.8-7.7); NEUTROPHILS % (AUTO) 39.9 % (40.0-70.0); PLATELET COUNT (AUTO) 311 K/uL (150-450); RED CELL DISTRIBUTION WIDTH 14.9 % (11.5-14.5)
[2021-05-29 07:51] VITALS: BP 105/54
[2021-05-29 08:04] LABS: ALANINE AMINOTRANSFERASE 35 U/L (12-78); ALBUMIN 2.3 g/dL (3.4-5.0); ALKALINE PHOSPHATASE 41 U/L (46-116); ANION GAP 9 mmol/L (8-16); ASPARTATE AMINOTRANSFERASE 22 U/L (15-37); BILIRUBIN,TOTAL 0.3 mg/dL (0.1-1.0); CARBON DIOXIDE 26 mmol/L (22-29); CHLORIDE 105 mmol/L (98-107); CREATININE 0.36 mg/dL (0.60-1.30); GLUCOSE,RANDOM 113 mg/dL (70-110); POTASSIUM 3.6 mmol/L (3.5-5.1); SODIUM SERUM 140 mmol/L (136-145); TOTAL PROTEIN, SERUM 6.2 g/dL (6.4-8.2); UREA NITROGEN, BLOOD 5 mg/dL (7-18)
[2021-05-29 08:11] LABS: GLOMERULAR FILTR. RATE CALC > 60 mL/min (>60)
[2021-05-29] MEDS: LOSARTAN POTASSIUM 50 MG TABLET PO SCH (09:21)
[2021-05-29] MEDS: ETHYL ALCOHOL 62% ANTISEPTIC NASAL INHALANT 0.6 ML AMPUL NASAL SCH (09:21)
[2021-05-29 13:59] VITALS: BP 132/84
[2021-05-29 15:14] LABS: COVID AG,FIA SOURCE NASAL SWAB
[2021-05-29] MEDS ORDERED: ACET104 NEB (17:10)
[2021-05-29] MEDS ORDERED: AUD NEB (17:10)
[2021-05-29] MEDS ORDERED: CLON1PAT12 TD (17:11)
[2021-05-29] MEDS ORDERED: IPRNEB IH (17:12)
[2021-05-29] MEDS ORDERED: LOSA-382 PO (17:12)
[2021-05-29] MEDS ORDERED: ACET-2247 PO (17:13)
[2021-05-29] MEDS ORDERED: ZOSY3375FZ IV (17:13)
[2021-05-29] MEDS ORDERED: POTASSIUM CHLORIDE 10% 40 MEQ/30 ML LIQUID UDCUP NG ONE (17:15)
== END 2021-05-29 17:55 | DRG 871 ==
LOC: EMS 20:28 → 5N 05-07 01:32 → 5S 05-09 12:50 → ICUN 05-11 15:15 → ICU 05-12 03:15 → 5S 05-14 11:55 → 6N 05-24 15:29
PROVIDERS: ADMIT Internal Medicine; ATTEND Hospitalist
PROC: 5A09357 Assistance with Respiratory Ventilation, Less than 24 Consecutive Hours, Continuous Positive Airway Pressure (ICD-10-PCS; 2021-05-11)
PROC: 05HY33Z Insertion of Infusion Device into Upper Vein, Percutaneous Approach (ICD-10-PCS; 2021-05-11)
PROC: 5A09357 Assistance with Respiratory Ventilation, Less than 24 Consecutive Hours, Continuous Positive Airway Pressure (ICD-10-PCS; 2021-05-12)
PROC: 5A09357 Assistance with Respiratory Ventilation, Less than 24 Consecutive Hours, Continuous Positive Airway Pressure (ICD-10-PCS; 2021-05-13)
PROC: 5A0935A Assistance with Respiratory Ventilation, Less than 24 Consecutive Hours, High Flow/Velocity Cannula (ICD-10-PCS; 2021-05-19)
PROC: 0DH63UZ Insertion of Feeding Device into Stomach, Percutaneous Approach (ICD-10-PCS; principal; 2021-05-26 13:00)
DX: A41.9 Sepsis, unspecified organism (principal); G82.50 Quadriplegia, unspecified; G92.8 Other toxic encephalopathy; J69.0 Pneumonitis due to inhalation of food and vomit; J96.01 Acute respiratory failure with hypoxia; E44.0 Moderate protein-calorie malnutrition; J90 Pleural effusion, not elsewhere classified; N39.0 Urinary tract infection, site not specified; E87.0 Hyperosmolality and hypernatremia; T17.890A Other foreign object in other parts of respiratory tract causing asphyxiation, initial encounter; G35 Multiple sclerosis; I10 Essential (primary) hypertension; E87.6 Hypokalemia; Z20.822 Contact with and (suspected) exposure to COVID-19; X58.XXXA Exposure to other specified factors, initial encounter; F12.90 Cannabis use, unspecified, uncomplicated; R13.10 Dysphagia, unspecified; Z74.01 Bed confinement status; Z79.899 Other long term (current) drug therapy; Z68.26 Body mass index [BMI] 26.0-26.9, adult; Y93.89 Activity, other specified; Y92.89 Other specified places as the place of occurrence of the external cause; Y99.8 Other external cause status
CPT/HCPCS: 36245; 36569; 36600; 71045; 71275; 74230; 76937; 80048; 80053; 81001; 82040; 82550; 82805; 82962; 83605; 83735; 84100; 84132; 84145; 84436; 84443; 84484; 85025; 85610; 85730; 86140; 87040; 87081; 92526; 92610; 92611; 93005; 94640; 94660; 94667; 94668; 97110; 97163; 99291; G0378; J0131; J0360; J0690; J1160; J1644; J1956; J2543; J2704; J3480; J3490; J7030; J7050; J7060; J7120; Q9967; 36415-L1; 36415-TC; J7613; U0003